=== PATIENT | female | born 1960 | race Caucasian/White ===

== ENCOUNTER 2017-06-17 10:45 | Emergency (ER) | payer BC ==
[~2017-06-17] VITALS: Ht 162.6 cm; Wt 64.0 kg
[~2017-06-17 10:45] MED LIST: AIRBORNE; FLEXERIL OR; LISINOP/HCTZ1 TA2 OR; MEDDOSEPAK PO; MUCINEX600 MG PO; NITE TIME MULTI-SYM2; PROAIR HFA IN; ULTRAM50 M1 PO; ZITHROMAX250 MG OR; ZITHROMAX250 MG PO
[2017-06-17] MEDS ORDERED: LISINOPRIL20 MG PO (11:24)
[2017-06-17] MEDS ORDERED: HYDROCHLOROT12.5 MG PO (11:24)
[2017-06-17 11:59] LABS: ALBUMIN 4.9 g/dL (3.2-5.0); ALKALINE PHOSPHATASE 56 u/l (38-126); ANION GAP 15 (6-22 (CALC)); BILIRUBIN, TOTAL 0.7 mg/dL (0.0-1.4); BUN 8 mg/dL (7-17); BUN/CREATININE RATIO 12 (12-20 (CALC)); CALCIUM 9.8 mg/dL (8.4-10.2); CARBON DIOXIDE 27 mmol/l (22-30); CHLORIDE 95 mmol/l (95-108); CREATININE 0.7 mg/dL (0.5-1.0); GFR > 60 ML/MIN (>=60 (CALC)); GFR FOR AFR.AMER. > 60 ML/MIN (>=60 (CALC)); GLUCOSE 107 mg/dL (65-105); POTASSIUM 4.6 mmol/l (3.5-5.1); SGOT/AST 51 u/l (14-36); SGPT/ALT 55 u/l (9-52); SODIUM 132 mmol/l (137-146); TOTAL PROTEIN 7.8 g/dL (6.3-8.2)
[2017-06-17 12:03] LABS: HEMOGLOBIN 14.8 g/dl (12.0-16.0); IMMATURE GRANULOCYTES 0.4 % (0.0-1.0); MEAN CELL VOLUME 92.1 fL CALC (80.0-100.0); MEAN CORPUSCULAR HGB 31.7 pG CALC (26.0-32.0); MEAN CORPUSCULAR HGB CONC 34.4 g/L CALC (32.0-36.0); NEUT# 4.49 thou/uL (2.00-7.15); RED BLOOD COUNT 4.67 mill/uL (4.20-5.60)
[2017-06-17 12:13] LABS: URINE BILIRUBIN - DIPSTICK NEGATIVE (NEGATIVE); URINE BLOOD DIPSTICK SMALL (NEGATIVE); URINE COLOR YELLOW; URINE GLUCOSE - DIPSTICK NEGATIVE (NEGATIVE); URINE KETONE TRACE mg/dL (NEGATIVE); URINE LEUK ESTERASE NEGATIVE (NEGATIVE); URINE NITRITE - DIPSTICK NEGATIVE (Negative); URINE PH 6.5 (4.5-8.0); URINE PROTEIN - DIPSTICK NEGATIVE (NEG-TRACE); URINE UROBILINOGEN - DIPSTICK 0.2 E.U./dL (0.2)
[2017-06-17 12:15] LABS: URINE CLARITY SLIGHT CLOUDY; URINE EPITHELIAL CELLS FEW EPI/hpf (0-FEW)
[2017-06-17 12:16] LABS: BARBITURATES NEGATIVE (NEGATIVE); COCAINE NEGATIVE (NEGATIVE); METHADONE NEGATIVE (NEGATIVE); OXCYCODONE NEGATIVE (NEGATIVE); TETRAHYDROCANNABIONOL NEGATIVE (NEGATIVE); TRICYLIC ANTIDEPRESSANTS NEGATIVE (NEGATIVE)
[2017-06-17] MEDS ORDERED: FIORICET PO (14:03)
[2017-06-17] MEDS ORDERED: CIPROFLOXACN500 MG PO (14:03)
[2017-06-17 14:10] VITALS: BP 147/89
== END 2017-06-17 14:10 | disposition home or self-care (01) | DRG 305 ==
LOC: ED 10:45
PROVIDERS: Emergency Medicine
DX: I10 Essential (primary) hypertension (principal); N39.0 Urinary tract infection, site not specified; R51 Headache

== ENCOUNTER 2018-07-09 11:05 | Emergency (ER) | payer BC ==
[~2018-07-09] VITALS: Ht 162.6 cm; Wt 70.5 kg
[~2018-07-09 11:05] MED LIST changes: +CIPROFLOXACN500 MG PO; +FIORICET PO; +HYDROCHLOROT12.5 MG PO; +LISINOPRIL20 MG PO
[2018-07-09] MEDS ORDERED: INDOMETHACIN25 MG PO (11:35)
[2018-07-09] MEDS ORDERED: MEDDOSEPAK PO (11:35)
[2018-07-09 11:50] VITALS: BP 160/90
== END 2018-07-09 11:58 | disposition home or self-care (01) | DRG 556 ==
LOC: ED 11:05
DX: M25.542 Pain in joints of left hand (principal); M25.541 Pain in joints of right hand; R22.33 Localized swelling, mass and lump, upper limb, bilateral; M25.572 Pain in left ankle and joints of left foot; M25.571 Pain in right ankle and joints of right foot; R22.43 Localized swelling, mass and lump, lower limb, bilateral; F17.210 Nicotine dependence, cigarettes, uncomplicated; M10.9 Gout, unspecified

== ENCOUNTER 2018-08-20 09:27 | Emergency (ER) | payer BC ==
[~2018-08-20] VITALS: Ht 162.6 cm; Wt 70.0 kg
[~2018-08-20 09:27] MED LIST changes: +INDOMETHACIN25 MG PO
[2018-08-20] MEDS ORDERED: LISINOPRIL10 M1 PO (10:04)
[2018-08-20] MEDS ORDERED: LISINOP/HCTZ1 TA2 PO (10:04)
[2018-08-20] MEDS ORDERED: MELOXICAM7.5 MG PO (10:05)
[2018-08-20] MEDS ORDERED: K-DUR/KLOR-CON20 MEQ PO (10:05)
[2018-08-20 10:30] LABS: INFLUENZA A NONE DETECTED (NONE DETECT); INFLUENZA B NONE DETECTED (NONE DETECT)
[2018-08-20] MEDS ORDERED: AMOXICILLIN500 MG PO (10:34)
[2018-08-20 10:54] VITALS: BP 148/78
== END 2018-08-20 10:54 | disposition home or self-care (01) | DRG 153 ==
LOC: ED 09:27
PROVIDERS: Family Medicine
DX: J02.0 Streptococcal pharyngitis (principal); I10 Essential (primary) hypertension; M10.9 Gout, unspecified

== ENCOUNTER 2018-09-04 00:49 | Emergency (ER) | payer BC ==
[~2018-09-04] VITALS: Ht 162.6 cm; Wt 73.0 kg
[~2018-09-04 00:49] MED LIST changes: +AMOXICILLIN500 MG PO; +K-DUR/KLOR-CON20 MEQ PO; +LISINOP/HCTZ1 TA2 PO; +LISINOPRIL10 M1 PO; +MELOXICAM7.5 MG PO
[2018-09-04] MEDS ORDERED: NAPROSYN500 MG PO (02:29)
[2018-09-04 02:40] VITALS: BP 153/89
== END 2018-09-04 02:55 | disposition home or self-care (01) | DRG 563 ==
LOC: ED 00:49
DX: S43.401A Unspecified sprain of right shoulder joint, initial encounter (principal); I10 Essential (primary) hypertension; M10.9 Gout, unspecified; F17.210 Nicotine dependence, cigarettes, uncomplicated; X58.XXXA Exposure to other specified factors, initial encounter

== ENCOUNTER 2019-11-09 13:19 | Emergency (ER) | payer BC ==
[~2019-11-09] VITALS: Ht 162.6 cm; Wt 72.7 kg
[~2019-11-09 13:19] MED LIST changes: +NAPROSYN500 MG PO
[2019-11-09 15:48] LABS: HEMATOCRIT 40.3 % (37.0-47.0); HEMOGLOBIN 13.9 g/dl (12.0-16.0); IMMATURE GRANULOCYTES 0.1 % (0.0-5.0); MEAN CORPUSCULAR HGB 30.3 pG CALC (26.0-32.0); MEAN CORPUSCULAR HGB CONC 34.5 g/L CALC (32.0-36.0); NEUT# 2.57 thou/uL (2.00-7.15); RED BLOOD COUNT 4.58 mill/uL (4.20-5.60); RED CELL DISTRI WIDTH 14.1 % (11.5-15.5)
[2019-11-09 15:48] LABS: URINE BILIRUBIN - DIPSTICK NEGATIVE (NEGATIVE); URINE BLOOD DIPSTICK NEGATIVE (NEGATIVE); URINE COLOR YELLOW; URINE GLUCOSE - DIPSTICK NEGATIVE (NEGATIVE); URINE KETONE NEGATIVE (NEGATIVE); URINE LEUK ESTERASE NEGATIVE (NEGATIVE); URINE NITRITE - DIPSTICK NEGATIVE (Negative); URINE PROTEIN - DIPSTICK NEGATIVE (NEG-TRACE); URINE UROBILINOGEN - DIPSTICK 0.2 E.U./dL (0.2)
[2019-11-09 16:03] LABS: ALBUMIN 4.4 g/dL (3.2-5.0); ALKALINE PHOSPHATASE 53 u/l (38-126); BUN 13 mg/dL (7-17); BUN/CREATININE RATIO 19 (12-20 (CALC)); CARBON DIOXIDE 28 mmol/l (22-30); CHLORIDE 93 mmol/l (95-108); CREATININE 0.7 mg/dL (0.5-1.0); GFR > 60 ML/MIN (>=60 (CALC)); GFR FOR AFR.AMER. > 60 ML/MIN (>=60 (CALC)); SGOT/AST 36 u/l (14-36); SODIUM 130 mmol/l (137-146); TOTAL PROTEIN 7.6 g/dL (6.3-8.2)
[2019-11-09 16:15] LABS: ANION GAP 13 (6-22 (CALC)); BILIRUBIN, TOTAL 0.4 mg/dL (0.0-1.4); POTASSIUM 3.5 mmol/l (3.5-5.1)
[2019-11-09] MEDS ORDERED: ZITHROMAX250 MG PO (16:33)
[2019-11-09] MEDS ORDERED: PROVENTIL108 MCG/AC IN (16:33)
[2019-11-09] MEDS ORDERED: MEDDOSEPAK PO (16:33)
[2019-11-09] MEDS ORDERED: METOPROL TAR25 MG PO (16:52)
[2019-11-09] MEDS ORDERED: MONTELUKAST SOD10 MG PO (16:53)
[2019-11-09] MEDS ORDERED: LEVOCETIRIZINE D5 MG PO (16:54)
[2019-11-09] MEDS ORDERED: DICLOFENAC SOD100 M1 PO (16:55)
[2019-11-09] MEDS ORDERED: CYMBALTA60 MG PO (16:56)
[2019-11-09 16:58] VITALS: BP 160/95
== END 2019-11-09 16:58 | disposition home or self-care (01) | DRG 192 ==
LOC: ED 13:19
DX: J44.9 Chronic obstructive pulmonary disease, unspecified (principal); R07.89 Other chest pain; I10 Essential (primary) hypertension; F17.200 Nicotine dependence, unspecified, uncomplicated

== ENCOUNTER 2024-06-30 10:58 | Emergency (ER) | payer MEDICARE ==
[~2024-06-30] VITALS: Ht 162.6 cm; Wt 70.3 kg
[2024-06-30] VITALS (7 sets, daily range): BP systolic 112–137; BP diastolic 78–91
[~2024-06-30 10:58] MED LIST changes: +AMOX/K CLAV875 M1 PO; +CYMBALTA60 MG PO; +DICLOFENAC SOD100 M1 PO; +LEVOCETIRIZINE D5 MG PO; +METOPROL TAR25 MG PO; +MONTELUKAST SOD10 MG PO; +PROVENTIL108 MCG/AC IN
[2024-06-30] MEDS ORDERED: MORPHINE SULFATE 4 MG/ML VIAL IM ONE (11:20)
[2024-06-30] MEDS ORDERED: KETOROLAC TROMETHAMINE 30 MG/ML SDV IM ONE ×2 (11:20→11:33)
[2024-06-30] MEDS ORDERED: METHOCARBAMOL 500 MG/TAB PO ONE (11:20)
[2024-06-30] MEDS ORDERED: predniSONE 20 MG/TAB PO ONE (11:20)
[2024-06-30] MEDS ORDERED: FLEXERIL5 M1 PO (11:26)
[2024-06-30] MEDS ORDERED: PREDNISONE50 MG PO (11:26)
[2024-06-30] MEDS ORDERED: TRAMADOL HYDROC50 M1 PO (11:26)
== END 2024-06-30 12:35 | disposition home or self-care (01) ==
LOC: ED 10:58
DX: M54.50 Low back pain, unspecified (principal); M06.9 Rheumatoid arthritis, unspecified; I10 Essential (primary) hypertension; M48.061 Spinal stenosis, lumbar region without neurogenic claudication; M10.9 Gout, unspecified; F17.210 Nicotine dependence, cigarettes, uncomplicated

== ENCOUNTER 2024-10-15 09:07 | Emergency (ER) | payer MEDICARE ==
[~2024-10-15] VITALS: Ht 162.6 cm; Wt 71.6 kg
[~2024-10-15 09:07] MED LIST changes: +FLEXERIL5 M1 PO; +PREDNISONE50 MG PO; +TRAMADOL HYDROC50 M1 PO
[2024-10-15 09:14] VITALS: BP 141/89
[2024-10-15 09:15] VITALS: BP 137/80
[2024-10-15 09:30] VITALS: BP 130/78
[2024-10-15] MEDS ORDERED: methylPREDNISolone SODIUM SUCC 125 MG/2 ML SDV IM ONE (09:30)
[2024-10-15] MEDS ORDERED: PERCOCET 5/325M1 TAB PO (09:41)
[2024-10-15 09:45] VITALS: BP 125/84
[2024-10-15 09:46] VITALS: BP 125/84
== END 2024-10-15 09:47 | disposition home or self-care (01) ==
LOC: ED 09:07
DX: S76.811A Strain of other specified muscles, fascia and tendons at thigh level, right thigh, initial encounter (principal); M06.9 Rheumatoid arthritis, unspecified; I10 Essential (primary) hypertension; J45.909 Unspecified asthma, uncomplicated; M10.9 Gout, unspecified; M48.00 Spinal stenosis, site unspecified; F17.210 Nicotine dependence, cigarettes, uncomplicated; X58.XXXA Exposure to other specified factors, initial encounter

== ENCOUNTER 2024-11-26 08:57 | Emergency (ER) | payer MEDICARE ==
[~2024-11-26] VITALS: Ht 162.6 cm; Wt 77.1 kg
[~2024-11-26 08:57] MED LIST changes: +PERCOCET 5/325M1 TAB PO
[2024-11-26 09:05] VITALS: BP 148/91
[2024-11-26] MEDS ORDERED: KETOROLAC TROMETHAMINE 30 MG/ML SDV IM ONE (09:55)
[2024-11-26] MEDS ORDERED: NAPROXEN500 MG PO (11:39)
[2024-11-26 11:46] VITALS: BP 148/91
[2024-11-26] MEDS ORDERED: HYDROCORTISONE0.5 % TOP (11:51)
== END 2024-11-26 11:54 | disposition home or self-care (01) ==
LOC: ED 08:57
DX: M54.50 Low back pain, unspecified (principal); M48.061 Spinal stenosis, lumbar region without neurogenic claudication; M51.26 Other intervertebral disc displacement, lumbar region; I10 Essential (primary) hypertension; M10.9 Gout, unspecified; M06.9 Rheumatoid arthritis, unspecified; F17.210 Nicotine dependence, cigarettes, uncomplicated